=== PATIENT | male | born 1960 | race Caucasian/White ===

== ENCOUNTER 2017-10-30 06:11 | Day surgery (SDC) | payer OTHER ==
[2017-10-30] MEDS ORDERED: LIDOCAINE 4% SOLUTION 50 ML BTL (07:19)
[2017-10-30] MEDS ORDERED: FENTAnyl 50 MCG/ML VIAL (08:24)
[2017-10-30] MEDS ORDERED: MIDAZOLAM 1 MG/ML 2 ML INJ ×2 (08:25)
== END 2017-10-30 14:46 | disposition home or self-care (01) ==
LOC: GIL 06:11
DX: Z12.11 Encounter for screening for malignant neoplasm of colon (principal); K29.30 Chronic superficial gastritis without bleeding; K21.0 Gastro-esophageal reflux disease with esophagitis; D12.3 Benign neoplasm of transverse colon
CPT/HCPCS: 43239; 88305; 88312; 88313